=== PATIENT | male | born 1955 | race Caucasian/White ===

== ENCOUNTER 2017-09-12 20:31 | Emergency (ER) | payer MEDICARE ==
[~2017-09-12] VITALS: Ht 182.9 cm; Wt 109.1 kg
[~2017-09-12 20:31] MED LIST: ALEVE220 MG PO; ALLEGRA-D 24HOU1 T24 PO; ASPIRIN 81M81 MG/TA2 PO; BIAXIN 500MG T500 MG PO; CIPRO 500MG TA500 MG PO; FLAGYL500 MG PO; LEVAQUIN 5500 MG/TA1 PO; NORVASC 10MG10 MG PO; OXY IR5 MG PO; PERCOCET 325 MG1 TA2 PO; PHENERGAN 25 TA25 MG PO; PLAVIX 75MG TAB75 MG PO; PROMETHAZINE12.5 M5 PO; RYBIX ODT50 MG PO; ULTRAM 50MG TAB50 MG PO; ZOCOR 10MG10 MG PO; ZOCOR 20MG20 MG PO; ZOFRAN ODT4 MG PO
[2017-09-12 20:45] VITALS: TEMP 99
[2017-09-12] MEDS ORDERED: HYZAAR 12.5 MG-1 TAB PO (22:06)
[2017-09-12 22:08] VITALS: BP 117/81
[2017-09-12 22:22] LABS: BASO # 0.1 (0.0-0.2); BASO % 0.6 % (0.0-2.0); EOS # 0.5 (0.0-0.7); EOS % 5.1 % (0-4.0); GRAN # 6.1 (1.4-6.5); GRAN % 63.1 % (42.2-75.2); HEMATOCRIT 38.2 % (42.0-52.0); LYMPH % 20.5 % (20.0-51.0); MEAN CELL VOLUME 86 fl (80.0-100.0); MEAN CORPUSCULAR HEMOGLOBIN 29 pg (27.0-31.0); MEAN CORPUSCULAR HGB CONC 34 g/dl (33.0-37.0); MEAN PLATELET VOLUME 8.3 fl (7.4-10.4); MONO % 10.1 % (1.7-9.3); PLATELET COUNT 274 K/mm3 (130-400); RED BLOOD COUNT 4.46 M/mm3 (4.20-5.60); REDCELL DISTRIBUTION WIDTH-CV 13.7 % (11.5-14.5)
[2017-09-12 23:00] VITALS: PULSE 66
== END 2017-09-12 23:00 | disposition home or self-care (01) ==
LOC: COL.ER 20:31
PROVIDERS: Family Medicine
DX: S86.911A Strain of unspecified muscle(s) and tendon(s) at lower leg level, right leg, initial encounter (principal); I10 Essential (primary) hypertension; Z79.82 Long term (current) use of aspirin; X50.0XXA Overexertion from strenuous movement or load, initial encounter

== ENCOUNTER 2018-08-14 15:27 | Emergency (ER) | payer MEDICARE ==
[~2018-08-14] VITALS: Ht 182.9 cm; Wt 95.5 kg
[~2018-08-14 15:27] MED LIST changes: +HYZAAR 12.5 MG-1 TAB PO
[2018-08-14 15:34] VITALS: TEMP 98.4
[2018-08-14 16:04] LABS: BASO # 0.1 (0.0-0.2); BASO % 0.9 % (0.0-2.0); EOS # 0.2 (0.0-0.7); EOS % 2.6 % (0-4.0); GRAN % 65.1 % (42.2-75.2); HEMATOCRIT 40.5 % (42.0-52.0); HEMOGLOBIN 13.8 g/dl (13.5-18.0); LYMPH % 22.2 % (20.0-51.0); MEAN CELL VOLUME 87 fl (80.0-100.0); MEAN CORPUSCULAR HEMOGLOBIN 30 pg (27.0-31.0); MEAN CORPUSCULAR HGB CONC 34 g/dl (33.0-37.0); MEAN PLATELET VOLUME 8.6 fl (7.4-10.4); MONO # 0.8 (0.1-0.6); MONO % 8.9 % (1.7-9.3); PLATELET COUNT 281 K/mm3 (130-400); RED BLOOD COUNT 4.66 M/mm3 (4.20-5.60); REDCELL DISTRIBUTION WIDTH-CV 14.2 % (11.5-14.5)
[2018-08-14 16:05] LABS: ALANINE AMINOTRANSFERASE 18 U/L (21-72); ALBUMIN 4.1 gm/dL (3.5-5.0); ALKALINE PHOSPHATASE 89 U/L (50-136); ANION GAP 11 mmol/L (7-16); AST,SGOT 34 U/L (15-37); BILIRUBIN,TOTAL 0.6 mg/dL (0.0-1.0); BLOOD UREA NITROGEN 24 mg/dL (9-20); CALCIUM 9.4 mg/dL (8.4-10.2); CARBON DIOXIDE 26 mmol/L (22-30); CHLORIDE 102 mmol/L (98-107); CREATINE KINASE 236 U/L (55-170); CREATININE, serum 1.17 (0.66-1.25); GLUCOSE 150 mg/dL (74-106); LIPASE 114 U/L (23-300); POTASSIUM 3.7 mmol/L (3.4-5.0); SODIUM 139 mmol/L (137-145); TOTAL PROTEIN 7.2 gm/dL (6.4-8.2)
[2018-08-14 16:22] LABS: PROTHROMBIN TIME 11.2 SECONDS (9.7-12.8); TROPONIN-I < 0.012 ng/mL (0.000-0.035)
[2018-08-14 20:14] VITALS: BP 139/91; PULSE 64
== END 2018-08-14 20:16 | disposition home or self-care (01) ==
LOC: COL.ER 15:27
PROVIDERS: Emergency Medicine
DX: R07.89 Other chest pain (principal); I10 Essential (primary) hypertension; Z90.49 Acquired absence of other specified parts of digestive tract; Z86.73 Personal history of transient ischemic attack (TIA), and cerebral infarction without residual deficits; Z98.890 Other specified postprocedural states; Z79.82 Long term (current) use of aspirin

== ENCOUNTER 2018-10-03 12:12 | Emergency (ER) | payer MEDICARE ==
[~2018-10-03] VITALS: Ht 177.8 cm; Wt 97.7 kg
[2018-10-03 12:24] VITALS: BP 113/63; TEMP 98.3
[2018-10-03 13:15] VITALS: PULSE 64
== END 2018-10-03 13:15 | disposition home or self-care (01) ==
LOC: COL.ER 12:12
DX: S60.453A Superficial foreign body of left middle finger, initial encounter (principal); I10 Essential (primary) hypertension; Z90.49 Acquired absence of other specified parts of digestive tract; Z79.82 Long term (current) use of aspirin; W45.8XXA Other foreign body or object entering through skin, initial encounter; Y92.009 Unspecified place in unspecified non-institutional (private) residence as the place of occurrence of the external cause

== ENCOUNTER → 2018-10-18 | Outpatient (CLI) | payer MEDICARE | LOC: COL.RAD 08:17 | DX: R10.32 Left lower quadrant pain (principal); Z90.49 Acquired absence of other specified parts of digestive tract ==

== ENCOUNTER → 2018-10-19 | Outpatient (CLI) | payer MEDICARE | LOC: COL.RAD 08:44 | DX: Z01.812 Encounter for preprocedural laboratory examination (principal); N20.0 Calculus of kidney | CPT/HCPCS: Q9967 ==

== ENCOUNTER 2019-01-12 16:01 | Emergency (ER) | payer MEDICARE ==
[~2019-01-12] VITALS: Ht 182.9 cm; Wt 111.4 kg
[2019-01-12 16:04] VITALS: TEMP 98.7
[2019-01-12 16:28] LABS: BASO # 0.1 (0.0-0.2); EOS # 0.5 (0.0-0.7); EOS % 5.7 % (0-4.0); GRAN # 5.3 (1.4-6.5); GRAN % 66.4 % (42.2-75.2); HEMATOCRIT 39.3 % (42.0-52.0); HEMOGLOBIN 13.3 g/dl (13.5-18.0); LYMPH # 1.4 (1.2-3.4); LYMPH % 16.8 % (20.0-51.0); MEAN CELL VOLUME 85 fl (80.0-100.0); MEAN CORPUSCULAR HEMOGLOBIN 29 pg (27.0-31.0); MEAN CORPUSCULAR HGB CONC 34 g/dl (33.0-37.0); MEAN PLATELET VOLUME 8.2 fl (7.4-10.4); MONO # 0.8 (0.1-0.6); MONO % 9.9 % (1.7-9.3); PLATELET COUNT 300 K/mm3 (130-400); RED BLOOD COUNT 4.61 M/mm3 (4.20-5.60); REDCELL DISTRIBUTION WIDTH-CV 13.6 % (11.5-14.5)
[2019-01-12 16:39] LABS: ALBUMIN 3.9 gm/dL (3.5-5.0); BILIRUBIN,TOTAL 0.5 mg/dL (0.0-1.0); CALCIUM 9.1 mg/dL (8.4-10.2); CREATININE, serum 1.12 (0.66-1.25); POTASSIUM 3.6 mmol/L (3.4-5.0); TOTAL PROTEIN 6.8 gm/dL (6.4-8.2)
[2019-01-12 17:21] LABS: COLLECTION METHOD CLEAN CATCH
[2019-01-12 17:29] LABS: MUCOUS Present /lpf; PH 5 (5-8); SQUAMOUS EPITHELIAL None Seen /hpf; URINE APPEARANCE Clear; URINE BACTERIA None Seen /hpf; URINE BILIRUBIN Negative (NEGATIVE); URINE BLOOD Negative (NEGATIVE); URINE COLOR Yellow; URINE GLUCOSE Negative (NEGATIVE); URINE KETONE Negative (NEGATIVE); URINE LEUKOCYTE ESTERASE Negative (NEGATIVE); URINE NITRATE Negative (NEGATIVE); URINE PROTEIN(semi-quant) Negative (NEGATIVE); URINE RBC 0-2 /hpf; URINE UROBILINOGEN Negative (NEGATIVE)
[2019-01-12 18:46] VITALS: BP 109/73; PULSE 71
[2019-01-12 18:48] LABS: C-REACTIVE PROTEIN 0.6 mg/dL (0.0-0.9)
== END 2019-01-12 18:46 | disposition home or self-care (01) ==
LOC: COL.ER 16:01
PROVIDERS: Emergency Medicine
DX: R10.31 Right lower quadrant pain (principal); E78.5 Hyperlipidemia, unspecified; I10 Essential (primary) hypertension; Z87.442 Personal history of urinary calculi; Z90.49 Acquired absence of other specified parts of digestive tract; Z90.89 Acquired absence of other organs
CPT/HCPCS: J1885; J2765; J3010; J7030

== ENCOUNTER 2019-12-20 12:18 | Emergency (ER) | payer MEDICARE ==
[~2019-12-20] VITALS: Ht 182.9 cm; Wt 109.1 kg
[2019-12-20 12:24] VITALS: TEMP 98.3
[2019-12-20] MEDS ORDERED: HCTZ12.5TAB PO (12:30)
[2019-12-20] MEDS ORDERED: COZAAR100 MG PO (12:30)
[2019-12-20 12:52] LABS: COLLECTION METHOD CLEAN CATCH
[2019-12-20 12:57] LABS: BASO # 0.1 (0.0-0.2); BASO % 0.8 % (0.0-2.0); EOS # 0.5 (0.0-0.7); EOS % 4.7 % (0-4.0); GRAN # 7.4 (1.4-6.5); GRAN % 69.5 % (42.2-75.2); HEMATOCRIT 42.7 % (42.0-52.0); HEMOGLOBIN 14.5 g/dl (13.5-18.0); LYMPH # 1.6 (1.2-3.4); MEAN CELL VOLUME 87 fl (80.0-100.0); MEAN CORPUSCULAR HEMOGLOBIN 30 pg (27.0-31.0); MEAN CORPUSCULAR HGB CONC 34 g/dl (33.0-37.0); MEAN PLATELET VOLUME 8.6 fl (7.4-10.4); MONO % 9.5 % (1.7-9.3); PLATELET COUNT 307 K/mm3 (130-400); RED BLOOD COUNT 4.89 M/mm3 (4.20-5.60); REDCELL DISTRIBUTION WIDTH-CV 14.1 % (11.5-14.5)
[2019-12-20 12:58] LABS: MUCOUS Present /lpf; PH 5 (5-8); SQUAMOUS EPITHELIAL None Seen /hpf; URINE APPEARANCE Hazy; URINE BACTERIA None Seen /hpf; URINE BILIRUBIN Negative (NEGATIVE); URINE BLOOD Negative (NEGATIVE); URINE COLOR Yellow; URINE GLUCOSE Negative (NEGATIVE); URINE KETONE Negative (NEGATIVE); URINE LEUKOCYTE ESTERASE Negative (NEGATIVE); URINE NITRATE Negative (NEGATIVE); URINE PROTEIN(semi-quant) 1+ (NEGATIVE); URINE RBC 0-2 /hpf
[2019-12-20 13:08] LABS: ALBUMIN 4.5 gm/dL (3.5-5.0); CALCIUM 9.4 mg/dL (8.4-10.2); CREATININE, serum 1.35 (0.66-1.25); POTASSIUM 4.4 mmol/L (3.4-5.0); TOTAL PROTEIN 7.7 gm/dL (6.4-8.2)
[2019-12-20 16:33] VITALS: BP 142/87; PULSE 61
== END 2019-12-20 16:37 | disposition home or self-care (01) ==
LOC: COL.ER 12:18
PROVIDERS: Nurse Practitioner
DX: R10.31 Right lower quadrant pain (principal); I10 Essential (primary) hypertension; Z86.73 Personal history of transient ischemic attack (TIA), and cerebral infarction without residual deficits
CPT/HCPCS: J7030; Q9967

== ENCOUNTER 2020-06-13 10:52 | Emergency (ER) | payer MEDICARE ==
[~2020-06-13] VITALS: Ht 182.9 cm; Wt 109.1 kg
[~2020-06-13 10:52] MED LIST changes: +COZAAR100 MG PO; +HCTZ12.5TAB PO
[2020-06-13 11:02] VITALS: TEMP 97.6
[2020-06-13 11:25] LABS: BASO # 0.1 (0.0-0.2); BASO % 1.1 % (0.0-2.0); EOS # 0.6 (0.0-0.7); EOS % 7.7 % (0-4.0); GRAN # 4.6 (1.4-6.5); GRAN % 62.4 % (42.2-75.2); HEMATOCRIT 41.5 % (42.0-52.0); HEMOGLOBIN 14.2 g/dl (13.5-18.0); LYMPH # 1.5 (1.2-3.4); LYMPH % 19.9 % (20.0-51.0); MEAN CELL VOLUME 87 fl (80.0-100.0); MEAN CORPUSCULAR HEMOGLOBIN 30 pg (27.0-31.0); MEAN CORPUSCULAR HGB CONC 34 g/dl (33.0-37.0); MEAN PLATELET VOLUME 8.4 fl (7.4-10.4); MONO # 0.6 (0.1-0.6); MONO % 8.6 % (1.7-9.3); PLATELET COUNT 296 K/mm3 (130-400); RED BLOOD COUNT 4.79 M/mm3 (4.20-5.60); REDCELL DISTRIBUTION WIDTH-CV 14.1 % (11.5-14.5)
[2020-06-13 11:38] LABS: PROTHROMBIN TIME 11.6 SECONDS (9.7-12.8)
[2020-06-13 11:40] LABS: PARTIAL THROMBOPLASTIN TIME 32.7 SECONDS (26.0-37.0)
[2020-06-13 11:48] LABS: ALANINE AMINOTRANSFERASE 22 U/L (4-49); ALBUMIN 4.2 gm/dL (3.5-5.0); ALKALINE PHOSPHATASE 72 U/L (50-136); ANION GAP 8 mmol/L (7-16); AST,SGOT 38 U/L (15-37); BLOOD UREA NITROGEN 22 mg/dL (9-20); CALCIUM 9.2 mg/dL (8.4-10.2); CARBON DIOXIDE 27 mmol/L (22-30); CHLORIDE 102 mmol/L (98-107); CREATININE, serum 0.98 (0.66-1.25); GLUCOSE 101 mg/dL (74-106); LIPASE 121 U/L (23-300); POTASSIUM 3.7 mmol/L (3.4-5.0); SODIUM 136 mmol/L (137-145); TOTAL PROTEIN 7.3 gm/dL (6.4-8.2)
[2020-06-13 12:07] LABS: TROPONIN-I < 0.012 ng/mL (0.000-0.035)
[2020-06-13 13:55] VITALS: BP 139/98; PULSE 79
== END 2020-06-13 14:15 | disposition home or self-care (01) ==
LOC: COL.ER 10:52
PROVIDERS: Emergency Medicine
DX: R00.2 Palpitations (principal); Z88.1 Allergy status to other antibiotic agents; Z88.6 Allergy status to analgesic agent; Z88.8 Allergy status to other drugs, medicaments and biological substances; Z86.73 Personal history of transient ischemic attack (TIA), and cerebral infarction without residual deficits

== ENCOUNTER 2020-06-27 22:27 | Emergency (ER) | payer MEDICARE ==
[~2020-06-27] VITALS: Ht 182.9 cm; Wt 109.1 kg
[2020-06-27 22:55] LABS: BASO # 0.1 (0.0-0.2); BASO % 0.8 % (0.0-2.0); EOS # 0.7 (0.0-0.7); EOS % 6.5 % (0-4.0); GRAN # 7.2 (1.4-6.5); HEMATOCRIT 38.5 % (42.0-52.0); HEMOGLOBIN 13.3 g/dl (13.5-18.0); LYMPH # 1.4 (1.2-3.4); LYMPH % 13.5 % (20.0-51.0); MEAN CELL VOLUME 85 fl (80.0-100.0); MEAN CORPUSCULAR HEMOGLOBIN 30 pg (27.0-31.0); MEAN CORPUSCULAR HGB CONC 35 g/dl (33.0-37.0); MEAN PLATELET VOLUME 8.4 fl (7.4-10.4); MONO % 9.9 % (1.7-9.3); PLATELET COUNT 289 K/mm3 (130-400); RED BLOOD COUNT 4.51 M/mm3 (4.20-5.60)
[2020-06-27 23:06] LABS: ALANINE AMINOTRANSFERASE 18 U/L (4-49); ALKALINE PHOSPHATASE 75 U/L (50-136); ANION GAP 9 mmol/L (7-16); AST,SGOT 25 U/L (15-37); BILIRUBIN,TOTAL 0.4 mg/dL (0.0-1.0); BLOOD UREA NITROGEN 31 mg/dL (9-20); CALCIUM 8.8 mg/dL (8.4-10.2); CARBON DIOXIDE 24 mmol/L (22-30); CHLORIDE 104 mmol/L (98-107); CREATININE, serum 1.15 (0.66-1.25); GLUCOSE 163 mg/dL (74-106); POTASSIUM 3.5 mmol/L (3.4-5.0); SODIUM 137 mmol/L (137-145); TOTAL PROTEIN 7.1 gm/dL (6.4-8.2)
[2020-06-27 23:20] LABS: TROPONIN-I < 0.012 ng/mL (0.000-0.035)
[2020-06-28 00:20] VITALS: BP 119/74; PULSE 75; TEMP 98.4
== END 2020-06-28 00:20 | disposition home or self-care (01) ==
LOC: COL.ER 22:27
PROVIDERS: Emergency Medicine
DX: R00.2 Palpitations (principal); I10 Essential (primary) hypertension; Z88.1 Allergy status to other antibiotic agents; Z88.5 Allergy status to narcotic agent

== ENCOUNTER 2021-08-11 20:59 | Emergency (ER) | payer MEDICARE ==
[~2021-08-11] VITALS: Ht 182.9 cm; Wt 111.4 kg
[2021-08-11 21:08] VITALS: TEMP 97.2
[2021-08-11 22:35] VITALS: BP 132/78; PULSE 72
== END 2021-08-11 22:35 | disposition home or self-care (01) ==
LOC: COL.ER 20:59
DX: S89.91XA Unspecified injury of right lower leg, initial encounter (principal); M17.11 Unilateral primary osteoarthritis, right knee; M25.461 Effusion, right knee; Z88.6 Allergy status to analgesic agent; Z28.310 Unvaccinated for COVID-19; W01.0XXA Fall on same level from slipping, tripping and stumbling without subsequent striking against object, initial encounter; X50.1XXA Overexertion from prolonged static or awkward postures, initial encounter; Y92.59 Other trade areas as the place of occurrence of the external cause; Y99.0 Civilian activity done for income or pay

== ENCOUNTER 2021-12-17 10:57 | Emergency (ER) | payer MEDICARE ==
[~2021-12-17] VITALS: Ht 182.9 cm; Wt 112.3 kg
[2021-12-17 11:10] VITALS: TEMP 98.4
[2021-12-17 11:29] LABS: BASO # 0.1 K/mm3 (0.0-0.2); BASO % 1.1 % (0.0-2.0); EOS # 0.6 K/mm3 (0.0-0.7); EOS % 7.2 % (0.0-4.0); GRAN # 4.5 K/mm3 (1.4-6.5); GRAN % 59.1 % (42.2-75.2); HEMATOCRIT 41.4 % (42.0-52.0); HEMOGLOBIN 14.6 g/dl (13.5-18.0); LYMPH # 1.7 K/mm3 (1.2-3.4); LYMPH % 22.2 % (20.0-51.0); MEAN CELL VOLUME 83 fl (80.0-100.0); MEAN CORPUSCULAR HEMOGLOBIN 29 pg (27-31); MEAN CORPUSCULAR HGB CONC 35 g/dl (33.0-37.0); MEAN PLATELET VOLUME 8.7 fl (7.4-10.4); MONO # 0.8 K/mm3 (0.1-0.6); PLATELET COUNT 268 K/mm3 (130-400); RED BLOOD COUNT 4.97 M/mm3 (4.20-5.60); REDCELL DISTRIBUTION WIDTH-CV 14.2 % (11.5-14.5)
[2021-12-17] MEDS ORDERED: ZYRTEC 10MG10 MG PO (11:35)
[2021-12-17] MEDS ORDERED: CRESTOR 10MG10 MG PO (11:36)
[2021-12-17] MEDS ORDERED: TOPROL XL 25MG25 MG PO (11:37)
[2021-12-17 11:49] LABS: BILIRUBIN,TOTAL 1.1 mg/dL (0.2-1.2); CALCIUM 9.5 mg/dL (8.4-10.2); CREATININE, serum 1.07 mg/dL (0.72-1.25); POTASSIUM 3.9 mmol/L (3.5-4.5); TOTAL PROTEIN 7.2 gm/dL (6.2-8.1)
[2021-12-17 12:39] LABS: COLLECTION METHOD CLEAN CATCH
[2021-12-17 12:46] LABS: URINE APPEARANCE Clear (CLEAR/HAZY); URINE BLOOD Negative (NEGATIVE); URINE COLOR Yellow (YELLOW); URINE GLUCOSE Negative (NEGATIVE); URINE KETONE Negative (NEGATIVE); URINE NITRATE Negative (NEGATIVE); URINE PROTEIN(semi-quant) Negative (NEGATIVE); URINE UROBILINOGEN 0.2 E.U/dL (0.2-1.0)
[2021-12-17 12:47] LABS: SQUAMOUS EPITHELIAL None Seen /hpf (0-10); URINE BACTERIA None Seen /hpf (NONE SEEN); URINE RBC 0-2 /hpf (0-2)
[2021-12-17] MEDS ORDERED: NORCO 325 MG-51 TAB PO (13:19)
[2021-12-17] MEDS ORDERED: ULTRAM 50MG TAB50 MG PO (13:26)
[2021-12-17 13:35] VITALS: BP 118/75; PULSE 54
== END 2021-12-17 13:35 | disposition home or self-care (01) ==
LOC: COL.ER 10:57
PROVIDERS: Emergency Medicine
DX: R10.31 Right lower quadrant pain (principal); Z90.49 Acquired absence of other specified parts of digestive tract; Z88.6 Allergy status to analgesic agent
CPT/HCPCS: J2765; J3010; J7120; Q9967

== ENCOUNTER → 2022-05-05 | Outpatient (CLI) | payer MEDICARE ==
[~2022-05-05] MED LIST changes: +CRESTOR 10MG10 MG PO; +NORCO 325 MG-51 TAB PO; +TOPROL XL 25MG25 MG PO; +ZYRTEC 10MG10 MG PO
== END ==
LOC: COL.RAD 04-01 12:30
DX: M16.11 Unilateral primary osteoarthritis, right hip (principal)